=== PATIENT | female | born 2000 | race Caucasian/White ===

== ENCOUNTER 2023-04-24 09:47 | Emergency (ER) | payer OTHER ==
[~2023-04-24] VITALS: Ht 162.6 cm; Wt 66.3 kg
[2023-04-24 09:54] VITALS: BP 122/64; PULSE 105; RESP 19; TEMP 98.5; O2SAT 97
[2023-04-24] MEDS ORDERED: DEXAMETHASONE 10 MG/ML VIAL PO ONE (11:00)
[2023-04-24] MEDS ORDERED: AMOX500C25 PO (11:03)
== END 2023-04-24 11:22 | disposition home or self-care (01) ==
LOC: MED 09:47
DX: J02.0 Streptococcal pharyngitis (principal); Z79.899 Other long term (current) drug therapy
CPT/HCPCS: 87081; 99283; J1100

== ENCOUNTER 2023-08-28 02:44 | Emergency (ER) | payer OTHER ==
[~2023-08-28] VITALS: Ht 167.6 cm; Wt 65.8 kg
[~2023-08-28 02:44] MED LIST: AMOX500C25 PO
[2023-08-28 02:45] VITALS: BP 116/77; PULSE 113; RESP 19; TEMP 98; O2SAT 99
[2023-08-28] MEDS ORDERED: KETOROLAC 30 MG/ML VIAL ONE (04:07)
[2023-08-28] MEDS ORDERED: ONDANSETRON 4 MG/2 ML VIAL ONE (04:07)
[2023-08-28] MEDS: ONDANSETRON 4 MG/2 ML VIAL IVP ONE (04:08)
[2023-08-28] MEDS: NACL 0.9% 1,000 ML IV ONE (04:08)
[2023-08-28] MEDS: KETOROLAC 30 MG/ML VIAL IVP ONE (04:13)
[2023-08-28 05:14] LABS: BASOPHILS % (AUTO) 0.3 % (0.0-2.0); EOSINOPHILS % (AUTO) 0.3 % (0.0-4.0); HEMATOCRIT 43.9 % (36-48); HEMOGLOBIN 14.4 g/dL (12.0-16.0); LYMPHOCYTES # (AUTO) 2.2 K/uL (2.5-16.5); LYMPHOCYTES % (AUTO) 13.2 % (20.5-51.1); MEAN CORPUSCULAR HEMOGLOBIN 25 pg (27-31); MEAN CORPUSCULAR HGB CONC 33 g/dL (33-37); MONOCYTES # (AUTO) 1.5 K/uL (0.8-1.0); MONOCYTES % (AUTO) 9.3 % (1.7-9.3); NEUTROPHILS # (AUTO) 12.7 K/uL (1.8-7.7); NEUTROPHILS % (AUTO) 76.9 % (42.2-75.2); PLATELET COUNT (AUTO) 322 K/uL (140-450); RED CELL DISTRIBUTION WIDTH 13.6 % (11.6-13.7); WHITE BLOOD COUNT (AUTO) 16.5 K/uL (4.8-10.8)
[2023-08-28 05:22] LABS: ANION GAP 15.8 (8-16); CALCIUM 9.2 mg/dL (8.5-10.1); CREATININE 0.7 mg/dL (0.6-1.3); POTASSIUM 3.8 mmol/L (3.5-5.1)
[2023-08-28 05:25] LABS: APPEARANCE,URINE CLEAR (CLEAR); BILIRUBIN,URINE NEGATIVE (NEGATIVE); BLOOD, URINE NEGATIVE (NEGATIVE); COLOR,URINE YELLOW (YELLOW); LEUKOCYTE ESTERASE ,URINE NEGATIVE (NEGATIVE); NITRITE, URINE NEGATIVE (NEGATIVE); PROTEIN,URINE NEGATIVE (NEGATIVE); UGLUCOSE NEGATIVE (NEGATIVE); UROBILINOGEN,URINE 0.2 EU/dL (0.2 - 1)
[2023-08-28 05:29] LABS: BILIRUBIN,DIRECT 0.1 mg/dL (0.0-0.3); TOTAL BILIRUBIN 0.3 mg/dL (0.0-1.0); TOTAL PROTEIN, SERUM 8.3 g/dL (6.4-8.2)
[2023-08-28] MEDS ORDERED: METR-435 PO (06:36)
[2023-08-28] MEDS ORDERED: ONDA-188 PO (06:36)
[2023-08-28] MEDS ORDERED: ACET-10509 PO (06:37)
[2023-08-28 06:46] VITALS: BP 122/71; PULSE 100; RESP 19; TEMP 98.2; O2SAT 99
== END 2023-08-28 06:46 | disposition home or self-care (01) ==
LOC: MED 02:44
DX: R11.10 Vomiting, unspecified (principal); R19.7 Diarrhea, unspecified; Z79.899 Other long term (current) drug therapy
CPT/HCPCS: 36415; 74176; 80048; 80076; 81003; 81025; 83690; 85025; 96361; 96374; 96375; 99285; J1885; J2405; J7030

== ENCOUNTER 2024-02-11 10:54 | Emergency (ER) | payer OTHER ==
[~2024-02-11] VITALS: Ht 160 cm; Wt 68.5 kg
[~2024-02-11 10:54] MED LIST changes: +ACET500T99 PO; +METR-435 PO; +ONDA-188 PO
[2024-02-11 11:02] VITALS: BP 115/71; PULSE 122; RESP 15; TEMP 99.8; O2SAT 98
[2024-02-11 11:57] LABS: BASOPHILS # (AUTO) 0.1 K/uL (0.00-0.22); BASOPHILS % (AUTO) 0.4 % (0.0-2.0); HEMATOCRIT 41.3 % (36-48); HEMOGLOBIN 13.4 g/dL (12.0-16.0); LYMPHOCYTES # (AUTO) 1.2 K/uL (2.5-16.5); LYMPHOCYTES % (AUTO) 7.4 % (20.5-51.1); MEAN CORPUSCULAR HEMOGLOBIN 25 pg (27-31); MEAN CORPUSCULAR HGB CONC 33 g/dL (33-37); MEAN CORPUSCULAR VOLUME 76.8 fL (80-94); MONOCYTES # (AUTO) 1.2 K/uL (0.8-1.0); MONOCYTES % (AUTO) 7.5 % (1.7-9.3); NEUTROPHILS # (AUTO) 13.2 K/uL (1.8-7.7); NEUTROPHILS % (AUTO) 84.7 % (42.2-75.2); PLATELET COUNT (AUTO) 247 K/uL (140-450); RED BLOOD CELL COUNT(AUTO) 5.38 MIL/uL (4.20-5.40); RED CELL DISTRIBUTION WIDTH 13.4 % (11.6-13.7); WHITE BLOOD COUNT (AUTO) 15.6 K/uL (4.8-10.8)
[2024-02-11] MEDS: NACL 0.9% 1,000 ML IV ONE (12:08)
[2024-02-11 12:20] LABS: CARBON DIOXIDE 27.9 mmol/L (21-32); CREATININE 0.7 mg/dL (0.6-1.3); POTASSIUM 3.9 mmol/L (3.5-5.1)
[2024-02-11 12:20] LABS: FLU A ANTIGEN NEGATIVE (NEGATIVE); FLU B ANTIGEN NEGATIVE (NEGATIVE)
[2024-02-11] MEDS ORDERED: IBUP-1842 PO (12:45)
[2024-02-11] MEDS: DEXAMETHASONE 10 MG/ML VIAL IVP ONE (13:24)
[2024-02-11] MEDS: KETOROLAC 30 MG/ML VIAL IVP ONE (13:25)
[2024-02-11 13:27] VITALS: BP 120/60; PULSE 99; RESP 15; TEMP 99.8; O2SAT 99
== END 2024-02-11 14:00 | disposition home or self-care (01) ==
LOC: MED 10:54
DX: J02.9 Acute pharyngitis, unspecified (principal); Z20.822 Contact with and (suspected) exposure to COVID-19; Z79.899 Other long term (current) drug therapy
CPT/HCPCS: 36415; 80048; 84703; 85025; 87081; 87426; 87804; 96361; 96374; 96375; 99284; J1100; J1885; J7030